=== PATIENT | female | born 1955 | race Native Hawaiian/Other Pacific Islander ===

== ENCOUNTER 2020-02-24 07:50 | Outpatient (CLI) | payer OTHER | END 2020-02-24 20:24 | disposition home or self-care (01) | LOC: EMG 07:50 | PROVIDERS: ATTEND Internal Medicine | DX: R20.2 Paresthesia of skin (principal); M79.18 Myalgia, other site; M79.606 Pain in leg, unspecified | CPT/HCPCS: 95860; 95907; 95910 ==